=== PATIENT | male | born 1985 | race American Indian/Alaskan Native ===

== ENCOUNTER 2018-07-25 11:02 | Emergency (ER) | payer SELFPAY ==
[2018-07-25 11:32] VITALS: BP 108/78
[2018-07-25] MEDS ORDERED: LEVAQUIN PO ONE (12:43)
--- NOTE | 2018-07-25 12:47 | Emergency Department Report ---
HPI - General Chief Complaint: Medical Clearance Time Seen by Provider: 07/25/18 12:41 - HPI HPI: 32-year-old male presents to the emergency department with continued left foot pain after stepping on a nail 4 days ago. The patient came into the emergency department at that time, had x-rays done and was discharged home with antibiotics, pain medication and referrals. However the patient is here today because his work note says that he is able to return to work today and he says that he needs a few more days to recover. He still has some pain to the bottom of the foot but denies any signs or symptoms of infection. He says he gets pain on Sunday and therefore has not filled any of his medications yet. ED Past Medical Hx - Past Medical History Previous Medical History?: No - Surgical History Past Surgical History?: No - Social History Smoking Status: Never Smoker Substance Use Type: None - Medications Home Medications: Home Medications Medication Instructions Recorded Confirmed Last Taken Type Amoxicillin/K Clav Tab [Augmentin 1 tab PO BID #20 tablet 01/30/14 Unknown Rx 875MG] Fluticasone Propionate [Flonase] 2 sprays NS QDAY #1 spray 01/30/14 Unknown Rx HYDROcodone/APAP 7.5-325 [Henry 1 each PO Q6HR PRN #20 tablet 01/30/14 Unknown Rx 7.5/325 mg] Ibuprofen [Motrin] 600 mg PO Q8H PRN #60 tablet 01/30/14 Unknown Rx Loratadine [Claritin] 10 mg PO DAILY #30 tablet 01/30/14 Unknown Rx RX: predniSONE [Deltasone] 50 mg PO QDAY #5 tab 01/30/14 Unknown Rx HYDROcodone/APAP 5-325 [Henry 1 - 2 each PO Q6HR PRN #14 tablet 07/21/18 Unknown Rx 5/325] RX: Ciprofloxacin HCl 500 mg PO BID #20 tablet 07/21/18 Unknown Rx [Ciprofloxacin TAB] RX: Ibuprofen [Motrin 800 MG tab] 800 mg PO Q8HR PRN #20 tablet 07/21/18 Unknown Rx ED Review of Systems ROS: Stated complaint: LT FOOT PAIN Other details as noted in HPI Comment: All other systems reviewed and negative Constitutional: denies: chills, fever Eyes: denies: eye pain, eye discharge, vision change ENT: denies: ear pain, throat pain Respiratory: denies: cough, shortness of breath, wheezing Cardiovascular: denies: chest pain, palpitations Gastrointestinal: denies: abdominal pain, vomiting Genitourinary: denies: dysuria, discharge Musculoskeletal: arthralgia. denies: back pain Skin: denies: change in color, pruritus Neurological: denies: headache, weakness Physical Exam - Physical Exam Vital Signs: Vital Signs 07/25/18 11:26 Temperature 97.8 F Pulse Rate 78 Respiratory 16 Rate Blood Pressure 108/78 O2 Sat by Pulse 100 Oximetry Physical Exam: GENERAL: The patient is well-developed well-nourished. HEENT: Normocephalic. Atraumatic. Patient has moist mucous membranes. EYES: Extraocular motions are intact. NECK: Supple. Trachea is midline. CHEST/LUNGS: Clear to auscultation. There is no respiratory distress noted. HEART/CARDIOVASCULAR: Regular. There is no tachycardia. There is no obvious murmur. ABDOMEN: There is no abdominal distention. SKIN: Skin is warm and dry. NEURO: The patient is awake, alert, and oriented. The patient is cooperative. The patient has no focal neurologic deficits. The patient has normal speech. MUSCULOSKELETAL: There is some mild tenderness to palpation to the plantar left foot around the area of the previous puncture wound. There is no limitation range of motion. Capillary refill less than 2 seconds. +2 over 4 dorsalis pedis pulse. ED Course Vital Signs 07/25/18 11:26 Temperature 97.8 F Pulse Rate 78 Respiratory 16 Rate Blood Pressure 108/78 O2 Sat by Pulse 100 Oximetry ED Medical Decision Making - Medical Decision Making The patient is following back up regarding left foot pain after stepping on a nail about one week ago. The patient mostly is concerned that he does not feel he is ready to return to work and is asking for a second work no. He still has some mild tenderness to palpation in the area of the puncture wound. There are no current signs or symptoms of infection, despite the fact that the patient has been noncompliant with the medications. He already previously had an x-ray and there has been no further or new trauma and therefore I did not feel any new imaging was necessary at this time. Vital signs stable including being afebrile. Patient was given a dose of antibiotics here, referrals for podiatry and 2 more days off of work. - Differential Diagnosis cellulitis, abscess, foot sprain, malingering Critical Care Time: No Critical care attestation.: If time is entered above; I have spent that time in minutes in the direct care of this critically ill patient, excluding procedure time. ED Disposition Clinical Impression: Left foot pain Disposition: TO HOME OR SELFCARE Is pt being admited?: No Condition: Stable Instructions: Arthralgia (ED) Additional Instructions: Take the medications that were previously prescribed for you. I have given you some referrals for local podiatrists. Return to the emergency Department with any worsening of your symptoms or any acute distress. Referrals: PRIMARY CAREMD [Primary Care Provider] - 3-5 Days ARDEN PATEL MD [Staff Physician] - 3-5 Days ANTHONY DUENAS DPM [Staff Physician] - 3-5 Days Forms: Work/School Release Form(ED) Time of Disposition: 12:47
== END 2018-07-25 12:50 | disposition home or self-care (01) ==
LOC: ED 11:02
DX: M79.672 Pain in left foot (principal)
CPT/HCPCS: 99282